=== PATIENT | female | born 1975 | race Caucasian/White ===

== ENCOUNTER 2021-04-19 12:12 | Outpatient (CLI) | payer OTHER, SELFPAY ==
--- NOTE | 2021-04-19 12:14 | RAD_ITS ---
EXAM: XR CERVICAL SPINE, 2 OR 3 VIEWS CLINICAL INDICATION: Neck pain TECHNIQUE: Frontal and lateral views of the cervical spine. This report was created using [employer] report GoTable technology. COMPARISON: None. FINDINGS: VERTEBRAE: The odontoid process is obscured by the overlying hard palate on the open mouth view. Therefore, it is not fully evaluated by plain film. Preserved vertebral body height. No acute fracture. No spondylolisthesis. Preservation of the normal cervical lordosis. No significant facet arthropathy. DISC SPACES: Unremarkable. Disc spaces are maintained. SOFT TISSUES: Unremarkable. No prevertebral soft tissue widening. LUNG APICES: Clear. RAD/Cerv Spine 2 or 3 Views IMPRESSION: The odontoid process is obscured by the overlying hard palate on the open mouth view. Therefore, it is not fully evaluated by plain film. Electronically Signed: Geoffrey Alvarez MD at 16:39 EST Reading Location ID and State: [facility] / MD , Service support ,
== END 2021-04-19 23:59 | disposition home or self-care (01) ==
LOC: MTRAD 12:13
PROVIDERS: Referring Provider Psychiatry & Neurology Neurology; Visit Provider Psychiatry & Neurology Neurology
DX: M54.2 Cervicalgia (principal)
CPT/HCPCS: 72040

== ENCOUNTER 2021-05-14 14:46 | Outpatient (CLI) | payer OTHER, SELFPAY ==
--- NOTE | 2021-05-14 14:58 | MRI_ITS ---
EXAM: MR HEAD WITHOUT AND WITH INTRAVENOUS CONTRAST, INTERNAL AUDITORY CANAL PROTOCOL CLINICAL INDICATION: Tinnitus, headache -- Attention to the IACs TECHNIQUE: Multiplanar and multisequence MR images of the internal auditory canal were obtained without and with intravenous contrast. This report was created using [employer] report [employer]ark technology. CONTRAST: IV 10mL dOTAREM COMPARISON: 06.29.15 FINDINGS: CRANIAL NERVES: Unremarkable. No mass. No abnormal enhancement. COCHLEA AND SEMICIRCULAR CANALS: Unremarkable. CEREBELLOPONTINE ANGLES: Unremarkable. No mass. BRAIN AND EXTRA-AXIAL SPACES: Unremarkable as visualized. No intra- or extra-axial hemorrhage. No intracranial mass or mass effect. There is preservation of the cruz/white matter interface. Posterior fossa structures are unremarkable. Ventricles are appropriate for age. No hydrocephalus. Basal cisterns are patent. BONES/JOINTS: Unremarkable. No discrete lytic or blastic abnormalities. SINUSES: Unremarkable as visualized. Clear. MASTOID AIR CELLS: Unremarkable as visualized. Clear. ORBITS: Unremarkable as visualized. Both globes, extraocular muscles, optic nerves and retrobulbar fat appear unremarkable. MRI/Brain W/WO Contrast IMPRESSION: Unremarkable MRI of the internal auditory canal. Electronically Signed: Geoffrey Alvarez MD at 16:03 EDT ,
== END 2021-05-14 23:59 | disposition home or self-care (01) ==
LOC: MRI 14:48
PROVIDERS: Referring Provider Psychiatry & Neurology Neurology; Visit Provider Psychiatry & Neurology Neurology
DX: H93.19 Tinnitus, unspecified ear (principal); R51.9 Headache, unspecified
CPT/HCPCS: 70553; A9575

== ENCOUNTER → 2021-12-26 | Outpatient (CLI) | payer OTHER, SELFPAY ==
[2021-12-26 14:58] LABS: Hematocrit 39.7 % (37-47); Hemoglobin 13.8 g/dL (12.0-15.0); Mean Corp Hgb Conc 34.8 g/dL (32-36); Mean Corpuscular Hgb 31.7 pg (27.0-32.0); Mean Corpuscular Volume 91.3 fL (81-99); Mean Platelet Vol. 10.7 fl (6.2-12.0); Platelet Count 300 K/mm3 (150-450); RBC Distribution Width CV 12.1 % (11.6-14.6); RBC Distribution Width SD 40.8 fl (35.1-43.9); Red Blood Count 4.35 M/mm3 (4.2-5.4); White Blood Count 5.5 K/mm3 (4.4-11.0)
[2021-12-26 15:02] LABS: Erythrocyte Sedimentation Rate 11 mm/hr (0-30)
[2021-12-26 15:22] LABS: ALB/GLOB Ratio 1.3 RATIO (0.9-2.4); AST(SGOT) 19 U/L (15-37); Alanine Aminotransfer ALT/SGPT 27 U/L (13-56); Albumin, Serum 4.1 g/dL (3.2-5.0); Alkaline Phosphatase 51 U/L (45-117); Anion Gap 6 (5-15); BUN 19 mg/dL (7-18); BUN/Creat Ratio 22.6 RATIO (10-20); CRP < 2.90 mg/L (0.0-3.0); Calcium,Total 9.1 mg/dL (8.5-10.1); Chloride 105 mmol/L (98-107); Creatinine, Serum 0.84 mg/dL (0.55-1.02); EST Glomerular Filtration Rate 78 mL/min (>60); Est Glom Filt Rate - Afr Amer 94 mL/min (>60); Globulin 3.2 g/dL (2.2-4.2); Glucose 83 mg/dL (74-106); Potassium 3.6 mmol/L (3.5-5.1); Protein, Total 7.3 g/dL (6.4-8.2); Sodium Level 137 mmol/L (136-145)
[2022-01-01 18:11] LABS: HSV 2 IgG < 0.91 index (0.00-0.90); Trileptal-Oxcarbazepine < 1 ug/mL (10-35)
== END | disposition home or self-care (01) ==
LOC: MTLAB 11:31
PROVIDERS: Referring Provider Psychiatry & Neurology Neurology; Visit Provider Psychiatry & Neurology Neurology
DX: H92.01 Otalgia, right ear (principal); G89.29 Other chronic pain; B00.9 Herpesviral infection, unspecified
CPT/HCPCS: 36415; 80053; 82542; 85027; 85652; 86140; 86695; 86696

== ENCOUNTER 2025-01-16 16:05 | Emergency (ER) | payer OTHER, SELFPAY ==
[2025-01-16 16:06] VITALS: BP 124/77; PULSE 76; RESP 18; TEMP 36.6; O2SAT 100; BMI 23.3
--- NOTE | 2025-01-16 16:11 | EDS_ITS ---
HPI History of Present Illness Chief Complaint: Ear Problem Informant: patient Onset/Context/Timing Onset: Weeks (1) Context: Gradual Onset Timing: Continuous Quality: Pressure Location: Right ear Worsened by: Nothing Relieved by: Nothing Narrative Narrative: Patient presents with right ear pain that has been getting worse over the past week. Patient states she has a history of Ménière's disease. Patient states that she has had flareups over the years. Patient states this feels similar to previous flareups but is worse. Patient states she was recently put on prednisone which did not help. Patient states she feels off balance at times but denies any spinning sensation. Patient denies any hearing changes. Patient admits to some nausea and vomiting. Patient thinks this is probably due to the pain. Patient states nothing makes it better and nothing makes it worse. Patient describes it as a pressure. Patient states it is over her right ear. [facility] Medical History (Updated 01/16/25 @ 18:[address] Leobardo Fernandes, DO) Ménière's disease Herpes simplex virus (HSV) infection Right-sided tinnitus Chronic right ear pain Endometriosis determined by laparoscopy Frequent headaches Home Medications Medication Instructions Recorded Last Taken Type magnesium 200 mg tablet 400 mg PO DAILY 04/19/21 Unk nown History valacyclovir 500 mg tablet 500 mg PO BID #28 tabs 04/27 Unknown Rx prednisone 10 mg tablet See Rx Instructions .Route 1 03/06/24 Unknown Rx .COMPLEX #39 tabs triamterene 37.5 1 cap PO DAILY #90 caps 06/25 Unknown Rx mg-hydrochlorothiazide 25 mg capsule indomethacin 25 mg capsule 25 mg PO TID PRN headache # 90 caps 01/10/25 Unknown Rx hydrocodone-acetaminophen 5-325mg 1 tab PO Q6H PRN PRN Pain 3 days 01/16/25 Unknown Rx 5mg-325mg #10 TABLETS Allergy/AdvReac Type Severity Reaction Status Date / Time amoxicillin (From Augmentin) AdvReac Intermediate Vomiting Verified 01/16/25 16:08 clavulanic acid (From AdvReac Intermediate Vomiting Verified 01/16/25 16:08 Augmentin) erythromycin base AdvReac Intermediate Vomiting Verified 01/16/25 16:08 Family History Grandfather Glaucoma Diabetes CVA (cerebral vascular accident) Grandfather Cancer Diabetes Myocardial infarction Heart disease Hypertension Grandmother Migraine headache Diabetes Osteoporosis Grandmother Diabetes Myocardial infarction, Onset Age: 60 Aunt Migraine headache Depression Mother Heart disease Osteoporosis Father Arnold-Chiari malformation Brother Arnold-Chiari malformation Surgical History History of abdominoplasty History of right knee surgery Hx of appendectomy Social History Smoking Status: Never smoker Electronic Cigarette Use: not used second hand exposure: No alcohol intake: current alcohol intake frequency: a few times a month substance use type: does not use omaira/mormon: Scientologist seatbelt use: always ROS ROS ED Constitutional Constitutional ED: Reports chills and subjective; Denies fever(s) Eyes Eyes: Denies blurry vision or change in vision ENT ENT ED: Reports ear pain right; Denies rhinorrhea or sore throat Cardiovascular Cardiovascular: Denies chest pain or palpitations Respiratory/Chest Respiratory/Chest: Denies cough or dyspnea Gastrointestinal Gastrointestinal: Reports nausea and vomiting Genitourinary Genitourinary ED: Denies dysuria or hematuria Musculoskeletal Musculoskeletal: Reports neck pain; Denies back pain Integumentary Denies abscess or rash Neurologic Neurologic: Reports headache(s); Denies weakness Allergic/Immunologic Allergic/Immunologic ED: Denies mouth swelling or urticaria EXAM Physical Exam Const Vital Signs: 01/16/25 16:06 Temperature 97.9 F Temperature Source Oral Pulse Rate 76 Respiratory Rate 18 Blood Pressure 124/77 H Blood Pressure Mean 92 Pulse Ox 100 Oxygen Delivery Method Room Air Positive well nourished and well developed Constitutional Narrative: BMI is 23.3. General Appearance ED: well developed and NAD HEENT Reports TM's clear and moist mucous membranes HEENT Narrative: There is no tenderness over the mastoid process. There is no erythema. Tympanic Membrane ED: Yes TM's clear bilateral Neck supple and no JVD Resp normal respiratory effort and clear to auscultation bilaterally Cardio regular rate and regular rhythm GI non-tender and non-distended Palpation: soft Neuro oriented x3, CN's II-XII intact bilaterally and no sensory deficits noted Sensorium / Orientation: alert Motor Exam: strength 5/5 throughout Psych mental status grossly normal MDM MDM MDM Narrative Medical decision making narrative: Differential diagnosis includes Ménière's disease, migraine headache, mastoiditis, and intracranial bleeding. CT scan of the brain will be obtained to assess for intracranial bleeding and mastoiditis. CBC will be obtained to assess for leukocytosis and anemia. Basic metabolic profile will be obtained to assess for electrolyte abnormality and renal function. Lab Data Attestation: I reviewed the patient's lab results. Lab results narrative: CBC was reviewed and was within normal limits. Basic metabolic profile was reviewed and was within normal limits. Labs: Laboratory Results - last 24 hr 01/16/25 16:50 WBC 7.9 RBC 3.98 L Hgb 12.4 Hct 35.7 L MCV 89.7 MCH 31.2 MCHC 34.7 RDW Std Deviation 43.1 RDW Coeff of Leelee 13.1 Plt Count 243 MPV 9.9 Immature Gran % (Auto) 0.400 Neut % (Auto) 83.7 H Lymph % (Auto) 11.0 L Rolette % (Auto) 3.8 Eos % (Auto) 0.3 Baso % (Auto) 0.8 Absolute Neuts (auto) 6.6 Absolute Lymphs (auto) 0.87 Nucleated RBC % 0 Sodium 132 L Potassium 3.3 Chloride 99 Carbon Dioxide 24.4 Anion Gap 8 BUN 12 Creatinine 0.76 Estim Creat Clear Calc 72.38 Est GFR (MDRD) Non-Af 98 BUN/Creatinine Ratio 16.3 Glucose 103 H Calcium 8.4 Radiography Diagnostic Testing: Clinical Impression(s) from Imaging Studies Brain CT 01/16/25 16:23 IMPRESSION: No acute intracranial abnormality. Reading Location: [id number] scan of the brain was obtained. There is no acute intracranial abnormality. This was interpreted by the radiologist. I also independently reviewed the images and did not see any acute intracranial bleeding or evidence of mastoiditis. Treatment and Re-Evaluation :: Patient was given IV fluids, Reglan, and Benadryl. Patient had minimal relief with this. Patient was given a dose of morphine. Patient was advised of her findings. Patient was advised that this could be neuralgia. Patient was given a prescription for a short course of [place]. Patient was instructed to follow-up with her neurologist and primary care physician in 3 to 5 days. Patient unders tood and was agreeable with the plan. All questions were answered. Discharge Plan Triage Chief Complaint: Ear Problem ED Provider: Leobardo Fernandes Dx/Rx/DC Orders Clinical Impression: Headache, Ménière's disease Instructions: ED Meniere's Disease Prescriptions: New hydrocodone-acetaminophen 5-325 mg tablet 1 tab PO Q6H PRN PRN (Reason: Pain) 3 Days Qty: 10 0RF No Action magnesium 200 mg tablet 400 mg PO DAILY valacyclovir 500 mg tablet 500 mg PO BID Qty: 28 0RF triamterene-hydrochlorothiazid 37.5-25 mg capsule 1 cap PO DAILY Qty: 90 1RF prednisone 10 mg tablet See Rx Instructions .Route .COMPLEX Qty: 39 0RF Rx Instructions: 6 tabs orally daily x 4 days then 5 tabs x 1 day then 4 tabs x 1 day then 3 tabs x 1 day then 2 tabs x 1 day then 1 tab x 1 day indomethacin 25 mg capsule 25 mg PO TID PRN (Reason: headache) Qty: 90 1RF Rx Instructions: administer with food or milk Primary Care Provider: Care Physician,No Primary Referrals: Patrick Gonzalez MD [Non-Staff -Ordering Privileges, Neurology] - 3-5 Days Care Physician,No Primary [Primary Care Provider, Medical] Print Language: Kyrgyz Disposition Disposition: Home, Self Care
--- NOTE | 2025-01-16 16:23 | CT_ITS ---
PROCEDURE: BRAIN/HEAD WITHOUT CONTRAST 01/16/2025 REASON FOR EXAM: HEADACHE TECHNIQUE: Procedure Code: CTBR Modality: CT Procedure: BRAIN/HEAD WITHOUT CONTRAST Coronal and Sagittal reconstruction series were provided. One or more dose reduction techniques were used (e.g., Automated exposure control, adjustment of the mA and/or kV according to patient size, use of iterative reconstruction technique. RADIATION DOSE SUMMARY: CTDlvol: 45 mGy DLP: 779 mGycm COMPARISON: MRI brain 05/14/2021 FINDINGS: Brain: No acute intracranial hemorrhage, mass effect, or midline shift. Pepe- white differentiation is maintained. CSF Spaces: Normal Sinuses/Mastoids: Clear at visualized levels Bones: Unremarkable CT/Brain/Head without Contrast IMPRESSION: No acute intracranial abnormality. Reading Location: [id number]
[2025-01-16] MEDS: 0.9% Normal Saline (1000mL) 1,000 ML 1000 ML IV (16:51)
[2025-01-16] MEDS: DiphenhydrAMINE 50 MG/ML Syringe 25 MG IV (16:51)
[2025-01-16 17:02] LABS: Hematocrit 35.7 % (37-47); Hemoglobin 12.4 g/dL (12.0-15.0); Immature Granulocytes Count 0.030 X10^3/uL (0.0-0.0); Mean Corp Hgb Conc 34.7 g/dL (32-36); Mean Corpuscular Volume 89.7 fL (81-99); Mean Platelet Vol. 9.9 fl (6.2-12.0); NRBC Flagged by Analyzer 0 % (0-5); Platelet Count 243 K/mm3 (150-450); RBC Distribution Width CV 13.1 % (11.6-14.6); RBC Distribution Width SD 43.1 fl (35.1-43.9); Red Blood Count 3.98 M/mm3 (4.2-5.4); White Blood Count 7.9 K/mm3 (4.4-11.0)
[2025-01-16 17:20] LABS: Anion Gap 8 (5-15); BUN 12 mg/dL (4-19); BUN/Creat Ratio 16.3 RATIO (10-20); Calcium,Total 8.4 mg/dL (7.6-11.0); Carbon Dioxide 24.4 mmol/L (21.0-32.0); Chloride 99 mmol/L (98-108); Estimated Creatinine Clearance 72.38 ml/min (50-250); Glucose 103 mg/dL (70-99); Potassium 3.3 mmol/L (3.3-5.1)
[2025-01-16 18:42] VITALS: BP 123/75; PULSE 76; RESP 18; TEMP 36.6; O2SAT 100
== END 2025-01-16 18:44 | disposition home or self-care (01) ==
PROVIDERS: Emergency Provider Emergency Medicine; Visit Provider Emergency Medicine
DX: H81.09 Meniere's disease, unspecified ear (principal); R11.2 Nausea with vomiting, unspecified; R51.9 Headache, unspecified
CPT/HCPCS: 70450; 80048; 85025; 96361; 96374; 96375; 99283; A4216

== ENCOUNTER → 2025-01-21 | Outpatient (CLI) | payer OTHER, SELFPAY ==
--- NOTE | 2025-01-21 12:23 | MRI_ITS ---
PROCEDURE: BRAIN W/WO CONTRAST 01/21/2025 REASON FOR EXAM: TENSION HEADACHES; MENIERE'S DISEASE TECHNIQUE: Procedure Code: MRIBRWW Modality: MR Procedure: BRAIN W/WO CONTRAST Multiplanar and multisequence images were obtained. CONTRAST: VOLUME: mL COMPARISON: CT dated 01/16/2025. 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 Otherwise the brain parenchyma appears unremarkable. The cruz-white matter differentiation is appropriate. The ventricles are normal in size and configuration. No midline shift. The midline structures are intact, specifically the corpus callosum, septum pellucidum, and cerebellar vermis. The cervicomedullary junction appears unremarkable. The paranasal sinuses and mastoid air cells are clear. The MR appearance of the inner ear structures including the bilateral cochlea, vestibules, and semicircular canals appear unremarkable. The internal auditory canals appear unremarkable bilaterally. The cisternal and canalicular segments of cranial nerves 7 and 8 appear unremarkable. The bilateral cerebellar pontine angles appear unremarkable. No abnormal enhancement pattern. Diffusion-weighted images demonstrate no restricted diffusion. 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 If warranted, further evaluation with a dedicated MRI of the pituitary gland can be obtained. Otherwise unremarkable MRI of the brain. Unremarkable MRI of the bilateral int ernal auditory canals. Reading Location: [id number]
== END | disposition home or self-care (01) ==
LOC: MRI 12:22
PROVIDERS: Referring Provider Psychiatry & Neurology Neurology; Visit Provider Psychiatry & Neurology Neurology
DX: G44.209 Tension-type headache, unspecified, not intractable (principal); H81.09 Meniere's disease, unspecified ear
CPT/HCPCS: 70553; A9575